=== PATIENT | male | born 1950 | race Caucasian/White ===

== ENCOUNTER → 2020-08-19 | Outpatient (CLI) | payer OTHER ==
--- NOTE | 2020-08-20 07:56 | MR ---
EXAMINATION TYPE: MR knee LT wo con DATE OF EXAM: 08/19/2020 COMPARISON: None HISTORY: Pain left knee CONTRAST: None Technique: Multiplanar, multiecho imaging on a 3.0 Twyla magnet is performed through the knee. FINDINGS: There is linear signal within the anterior horn lateral meniscus compatible with a type I t ear. No communication with the articular surface is evident. Mild nonspecific increased signals withi n the posterior horn lateral meniscus may be some degenerative change. There is increased signal with in the substance of the posterior horn medial meniscus compatible with type I tear. No communication with the articular surface is evident. Minimal increased signal compatible degenerative changes withi n the anterior horn medial meniscus. Anterior and posterior cruciate ligaments are intact. Distal quadriceps tendon and patellar tendon ar e intact. There is a small joint effusion. Medial and lateral collateral ligaments are intact. Articular surfaces has some mild thinning along the tibial plateau. There is some loss of posterior p atellar articular cartilage. Joint spaces and mild narrowing. Small popliteal cyst measuring 3.1 x 0. 9 x 0.5 cm is present. IMPRESSIONS: 1. Type I tear anterior horn lateral meniscus and posterior horn medial meniscus. 2. Some mild degenerative changes more likely related to degenerative changes are within the posterio r horn lateral meniscus and anterior horn medial meniscus 3. Small joint effusion. 4. Osteoarthritic degenerative-type changes
== END | disposition home or self-care (01) ==
LOC: RADMRIMAIN 14:26
PROVIDERS: ATTEND Physician Assistant
DX: S83.282A Other tear of lateral meniscus, current injury, left knee, initial encounter (principal); S83.242A Other tear of medial meniscus, current injury, left knee, initial encounter; M17.12 Unilateral primary osteoarthritis, left knee

== ENCOUNTER → 2020-10-08 | Outpatient (CLI) | payer OTHER ==
[2020-10-08 11:36] LABS: Basophils % (A) 1 %; Eosinophils # (A) 0.1 k/uL (0-0.7); Eosinophils % (A) 3 %; HCT 38.8 % (39.0-53.0); HGB 12.7 gm/dL (13.0-17.5); Lymphocytes % (A) 23 %; MCH 30.2 pg (25.0-35.0); MCHC 32.7 g/dL (31.0-37.0); MCV 92.4 fL (80.0-100.0); Mean Platelet Volume 7.2; Monocytes # (A) 0.4 k/uL (0-1.0); Monocytes % (A) 8 %; Neutrophils # (A) 2.8 k/uL (1.3-7.7); Neutrophils % (A) 62 %; Platelet Count 252 k/uL (150-450); WBC 4.5 k/uL (3.8-10.6)
[2020-10-08 21:17] LABS: Anion Gap 7.6 mmol/L (4.00-12.00); Carbon Dioxide 25.4 mmol/L (21.6-31.8); Potassium 4.4 mmol/L (3.5-5.5)
== END | disposition home or self-care (01) ==
LOC: LABWHC1 10:06
PROVIDERS: ATTEND Orthopaedic Surgery
DX: Z01.818 Encounter for other preprocedural examination (principal); M23.92 Unspecified internal derangement of left knee
CPT/HCPCS: 36415; 80051; 85025; 93005

== ENCOUNTER → 2020-10-22 | Day surgery (SDC) | payer OTHER ==
[2020-10-20 11:32] VITALS: BMI 26.4
--- NOTE | 2020-10-21 15:37 | HP ---
HISTORY AND PHYSICAL CHIEF COMPLAINT: Left knee pain. HISTORY OF PRESENT ILLNESS: This patient is a 70-year-old retired gentleman who presents with left knee pain after an injury 7-8 months ago. He slipped in his garage. He has been having pain, stiffness and giving way ever since. He has tried medication in addition to a previous injection, without much relief. He notes he is having daily pain that limits his normal function and activities. PAST MEDICAL HISTORY: Significant for hypercholesterolemia and hypertension. PAST SURGICAL HISTORY: Negative. CURRENT MEDICATIONS: Amlodipine, aspirin, atorvastatin, lisinopril, naproxen. ALLERGIES: HE DENIES DRUG ALLERGIES. FAMILY HISTORY: Significant for cancer. SOCIAL HISTORY: Significant for social alcohol use. REVIEW OF SYSTEMS: Sixteen-point review of systems is otherwise reviewed and is noncontributory. PHYSICAL EXAMINATION: On examination, the patient is approximately 6 feet 1 inches tall, 199 pounds of mesomorphic habitus. HEENT exam is nonfocal. NECK: Supple. He has painless passive motion of his left hip. Straight-leg raise is negative. Active motion of left knee minus 10 to 130 degrees of flexion. He has trace effusion. He is tender about the medial joint line. Active motion minus 10 to 130 degrees of flexion. Collaterals are stable. Luis A is negative. Martha's elicits medial pain. His distal neurovascular appears intact in the left lower extremity. IMAGING: MRI report left knee 09/14/2020 shows evidence of a posterior medial meniscal tear. IMPRESSION: 1. Left knee internal derangement with symptomatic medial meniscal tear. 2. Left knee moderate lateral greater than medial compartment osteoarthrosis. RECOMMENDATIONS: I talked to the patient at length regarding his condition and treatment options. At this point he remains quite symptomatic despite conservative measures. After thorough discussion, he opted to proceed with surgery. We will plan to proceed with arthroscopic evaluation with probable partial medial meniscectomy. We will likely perform that as an outpatient procedure. Risks and benefits were discussed at length in layman's terms. MMODL / IJN: [id number] /
[~2020-10-22] MED LIST: DEXAMETHASONE SOD PHOSPHATE 4 MG/ML 1 ML VIAL IV ONE; EPINEPHrine (PF) 1 ML in SODIUM CHLORIDE 0.9% IRRIGATIO 3,000 ML IRRIGATION ONE; HYDROmorphone 0.5 MG/0.5 ML SYRINGE IVP PRN; KETOROLAC 15 MG/ML 1 ML VIAL ONE; LACTATED RINGERS 1,000 ML IV SCH; LIDOCAINE 1% (10MG/ML) FOR IV START INTRADERMA ONE; LIDOCAINE 1% INJ 10MG/ML (20 ML MDV) ONE; MIDAZOLAM 2 MG/2 ML VIAL IV PRN; MIDAZOLAM 2 MG/2 ML VIAL ONE; ONDANSETRON 4 MG/2 ML VIAL IVP ONE; PROPOFOL 10 MG/ML 20 ML VIAL IV ONE; SUCCINYLCHOLINE CHLORIDE 100 MG/5 ML SYR IV ONE; fentaNYL (PF) 50 MCG/ML 2 ML AMP ONE
--- NOTE | 2020-10-22 10:49 | P.OP ---
Date of Procedure: 10/22/20 Preoperative Diagnosis: Left knee internal derangement Postoperative Diagnosis: Left knee posterior medial meniscal tear/posterior lateral meniscal tear/reactive synovitis of the medial, lateral, and patellofemoral compartments. Procedure(s) Performed: Left knee arthroscopic partial medial meniscectomy/partial lateral meniscectomy/partial synovectomy of the medial, lateral, and patellofemoral compartments Anesthesia: ALEJANDRAA Surgeon: Stan Rios Estimated Blood Loss (ml): 10 Pathology: none sent Condition: stable Disposition: PACU Indications for Procedure: The patient's a 70-year-old male who presents with progressive left knee pain after previous injury despite conservative measures. A discussion of the risks and benefits of operative intervention versus continued conservative measures was made with patient. He opted to proceed with surgery. Operative risks to include infection, neurovascular injury, development of blood clots, possible incomplete resolution of symptoms, possible worsening symptoms and need for subsequent procedures was discussed. Informed consent was obtained. Operative Findings: As below Description of Procedure: The patient was brought to the operating room, and after induction of general anesthesia examined the left knee. Collaterals were stable, Luis A was negative, and posterior drawer was negative. The left lower extremity was prepped and draped in a normal fashion. A superior lateral portal was made through a 3 mm skin incision superior and lateral to the patella. This was used for outflow. A lateral portal was made through a 5 mm vertical skin incision lateral to the patella tendon above the joint line. Diagnostic arthroscopy was performed. On inspection of the medial compartment, and oblique tear involving the posterior horn medial meniscus in the white-white junction was noted. This was debrided back to stable base with straight baskets and a motorized shaver. Reactive synovitis involving the anterior medial compartment was debrided with motorized shaver. On inspection of the notch, the anterior cruciate ligament appeared to be intact. On inspection of the lateral compartment, a complex oblique tear involving the posterior horn of the lateral meniscus in the white- red junction was noted. This was debrided back to stable base with a motorized shaver and straight baskets. The edges were contoured. Reactive synovitis involving the anterior lateral compartment was debrided with a motorized shaver. On inspection of the patellofemoral articulation mother was reactive survives debrided with motorized shaver. Grade 2-3 chondral changes were noted diffusely. No loose chondral fragments were noted.. The gutters were clear debris. The knee was then thoroughly irrigated. The portals were closed with Steri-Strips. A sterile dressing was applied in addition to a compression stocking. The patient was awoken from general anesthesia and transferred to recovery room in good condition. Blood loss was estimated at 10 mL. No complications were incurred.
[2020-10-22 10:59] VITALS: TEMP 97
[2020-10-22 11:02] VITALS: RESP 16
[2020-10-22 11:40] VITALS: PULSE 64
[2020-10-22 12:16] VITALS: BP 126/75
== END | disposition home or self-care (01) ==
LOC: OR 09:07
PROVIDERS: ATTEND Orthopaedic Surgery
DX: S83.242A Other tear of medial meniscus, current injury, left knee, initial encounter (principal); S83.272A Complex tear of lateral meniscus, current injury, left knee, initial encounter; M65.862 Other synovitis and tenosynovitis, left lower leg; W01.0XXA Fall on same level from slipping, tripping and stumbling without subsequent striking against object, initial encounter; I10 Essential (primary) hypertension; E78.00 Pure hypercholesterolemia, unspecified; E78.5 Hyperlipidemia, unspecified; Z79.82 Long term (current) use of aspirin; Z79.899 Other long term (current) drug therapy; Z79.1 Long term (current) use of non-steroidal anti-inflammatories (NSAID); Z80.9 Family history of malignant neoplasm, unspecified
CPT/HCPCS: 29880; J2250; J1100; J0690; J2405; J0171; J2001; J3010; J1885; J0330; J2704